=== PATIENT | male | born 1985 | race African-American/Black ===

== ENCOUNTER 2023-08-12 20:44 | Emergency (ER) | payer MEDICAID ==
[~2023-08-12] VITALS: Ht 172.7 cm; Wt 79.0 kg
[2023-08-12 20:58] VITALS: O2SAT 96
[2023-08-12] MEDS: LORAZEPAM 2MG/ML INJ IV ONE (20:58)
[2023-08-12 22:18] LABS: BASOPHILS % 0.5 % (0.0-2.0); DIFFERENTIAL COMMENT 0; EOSINOPHILS % 1.2 % (0.0-5.0); HEMATOCRIT. 40.3 % (42.0-52.0); HEMOGLOBIN. 12.9 g/dL (14.0-18.0); LYMPHOCYTES % 31.3 % (20.0-50.0); MEAN CORPUSCULAR HEMOGLOBIN 22.6 pg (28.0-32.0); MEAN CORPUSCULAR HGB CONC 31.9 g/dL (31.0-37.0); MEAN CORPUSCULAR VOLUME 70.6 fL (80.0-94.0); MEAN PLATELET VOLUME 7.1 fl (7.4-10.4); MONOCYTES % 13.8 % (2.0-8.0); NEUTROPHILS % 53.2 % (40.0-76.0); PLATELET 237 x1000/uL (130-400); RED CELL DISTRIBUTION WIDTH 16.4 % (11.6-14.6); WHITE BLOOD COUNT 4.3 x1000/uL (4.5-11.0)
[2023-08-12 22:21] LABS: CHLORIDE 104 mEq/L (98-107); POTASSIUM 2.9 mEq/L (3.5-5.1); SODIUM 138 mEq/L (136-145)
[2023-08-12 22:22] LABS: CALCIUM 9.4 mg/dL (8.7-10.4); CARBON DIOXIDE 25 mEq/L (21-32)
[2023-08-12 22:27] LABS: CREATININE 0.9 mg/dL (0.6-1.3); GLUCOSE 111 mg/dL (70-105); UREA NITROGEN BLOOD 11 mg/dL (9-23)
[2023-08-12 22:36] LABS: TROPONIN I HIGH SENSITIVITY < 4 ng/L (3.0-53)
[2023-08-13] MEDS: POTASSIUM CHLORIDE 20MEQ/PACKET PO ONE (02:25)
[2023-08-13] MEDS: POTASSIUM CHLORIDE 20MEQ/PACKET PO NR (02:34)
[2023-08-13 11:52] VITALS: BP 120/78; PULSE 63; RESP 17; TEMP 97.8
[2023-08-13] MEDS ORDERED: PANTOPRAZOLE SODIUM 40 MG/VIAL IV SCH (12:00)
[2023-08-13] MEDS ORDERED: ENOXAPARIN 40MG/0.4ML SYR SUBCUT SCH (12:00)
[2023-08-13] MEDS ORDERED: ONDANSETRON HCL 4MG/2ML INJ IV PRN (12:00)
[2023-08-13] MEDS ORDERED: CLONIDINE 0.1MG TABLET PO PRN (12:00)
[2023-08-13] MEDS ORDERED: METHYLPREDNISOLONE SOD SUCC 40MG/ML (ACT-O-VIAL) IV SCH (12:00)
[2023-08-13] MEDS ORDERED: IPRATROPIUM/ALBUTEROL 0.5-3(2.5)MG/3ML NEB HHN SCH (12:00)
[2023-08-13] MEDS ORDERED: ACETAMINOPHEN 325MG TABLET PO PRN (12:00)
== END 2023-08-13 12:03 | disposition left against medical advice (07) ==
LOC: ER 20:44
DX: E87.6 Hypokalemia (principal); R06.02 Shortness of breath; J45.909 Unspecified asthma, uncomplicated
CPT/HCPCS: 80048; 85025; 85379; 84484; 36415; 71045; 93005; 96374; 99291; J2060; Z7610 ×2